=== PATIENT | female | born 1985 | race Asian ===

== ENCOUNTER 2024-06-19 09:16 | Emergency (ER) | payer OTHER, SELFPAY ==
[2024-06-19 09:19] VITALS: BP 131/85
[2024-06-19 10:27] VITALS: BMI 23.7
--- NOTE | 2024-06-19 10:42 | ED.GENMED ---
History of Present Illness
General
Chief Complaint: Chest Pain
Source: patient
Exam Limitations: none
Time Seen by Provider: 06/19/24 10:41
Nursing documentation reviewed up to this point in time: agreed with
History of Present Illness
History of Present Illness:
38 yo female with no known past medical history presents stating last night around 10:30 while watching TV she developed mid to left upper chest pains. The pain is worse with deep breathing and sitting forward and with certain movements. She
denies shortness of breath, denies any recent upper respiratory infections, no history of blood clots, does not use contraceptives. No recollection of overuse or injury
Past History
Past History
ED Past Medical History: None
ED Past Surgical History: None
Social History
Tobacco: Non-smoker
Alcohol: Occasional
Drug: None
Personal:
Living: with family
Employment: Employed
Review of Systems
Review of Systems
Allergies reviewed?: Yes
All Other Systems: ROS reviewed and negative except as documented in HPI and ROS
Constitutional: Denies fever or fatigue
Respiratory: Denies trouble breathing
Cardiac: Reports chest pain; Denies diaphoresis, palpitations or syncope
ABD/GI: Denies abdominal pain or nausea
: Reports no symptoms
Musculoskeletal: Reports no symptoms
Skin: Reports no symptoms
Neurological: Reports no symptoms
Phy Exam
Physical Exam
Physical Exam:
GENERAL: No acute distress. A&Ox3.
CONSTITUTIONAL: Afebrile.
EYES: clear, conjunctivae normal
ENMT: moist mucus membranes, Pharynx nl
RESPIRATORY: Regular respirations, nonlabored, lungs clear.
CARDIOVASCULAR: Regular rate and rhythm, no murmurs, no rubs.
GI: Soft, nontender, normal BS
MUSCULOSKELETAL: Unable to reproduce pain with palpation. Moves with ease. Well perfused.
SKIN: Warm, dry, pink
PSYCH: Normal mood and affect. Well kept, interactive and appropriate
NEUROLOGIC: Awake, alert and oriented. No focal neurological deficits
Scores
Heart Score for Chest Pain Patients
STEMI patient?: Not applicable
Course
Orders/Labs/Results
Orders:
Orders
06/19/24 09:16
ECG [Electrocardiogram (*1)] Urgent
Reason for Study: Chest Pain
EKG- Treatment ONCE
06/19/24 10:54
Ketorolac [Toradol] 15 mg IV NOW STA
06/19/24 11:00
Complete Blood Count/With Diff Urgent
Comprehensive Metabolic Panel Urgent
D-Dimer Urgent
Troponin I Urgent
06/19/24 11:47
CR Chest - 2 Views Urgent
Comment:
Reason For Exam: mid to left chest pain
Abnormal Lab Results
06/19/24
11:00
RBC 4.09 L 10^6/uL
(4.20-5.40)
Hct 36.4 L %
(37.0-47.0)
06/19/24 11:00
06/19/24 11:00
Vital Signs
Initial and Last Documented VS:
Initial Vital Signs
Temp Pulse Resp BP Pulse Ox
98.1 F 68 18 131/85 100
06/19/24 09:19 06/19/24 09:19 06/19/24 09:19 06/19/24 09:19 06/19/24 09:19
Last Documented Vital Signs
Temp Pulse Resp BP Pulse Ox
98.1 F 60 20 98/73 100
06/19/24 09:19 06/19/24 11:55 06/19/24 11:55 06/19/24 12:58 06/19/24 11:55
MDM/Problems Addressed
Differential Diagnosis Includes:
costochondritis, musculoskeletal, pleuritis, PE
MDM/Problems Addressed:
38 yo female with no known past medical history presents stating last night around 10:30 while watching TV she developed mid to left upper chest pains. The pain is worse with deep breathing and sitting forward and with certain movements. She
denies shortness of breath. Feels well otherwise
No risk factors for PE
11:45 AM:
CBC normal
CMP normal
Troponin normal
D-dimer normal
CXR: Normal
Pt stable for discharge
*EKG
EKG Intrepretation Date: 06/19/24
Interpretation: normal
Heart Rate: 59
Rate: bradycardiac
Rhythm: sinus arrhythmia
[place]: normal axis
Interval: normal interval
QRS Pattern: normal QRS
Ischemia: no ischemia
*Critical Care Note
Total Time (30-74mins, 75-104mins- exclusive of procedures): Not Applicable
ED Attending Note
-
Portions of this chart may have been created with voice recognition software.� Occasional wrong word or��sound alike� substitutions may have occurred due to the inherent limitations of voice recognition software.
Discharge Plan
Departure
Patient Disposition: Home (Routine Discharge)
Date of Disposition: 06/19/24
Time of Disposition: 12:04
Patient with high blood pressure during this ER visit?: No
Condition: Good
Discharge Problem:
Atypical chest pain
Instructions: Chest Pain That Is Not Caused by the Heart (DC), Costochondritis (DC)
Prescriptions:
No Action
No Current Medications
0
Referrals:
Tarun Vergara MD [Family Provider] - As needed
Activity Restrictions/Additional Instructions:
As we discussed, your workup here today shows nothing worrisome.
Ibuprofen 600 mg, with food, every 6 hours as needed for pain.
Interventions
Interventions:
*Risk Screen - Suicide Last Done: 06/19/24 09:19
*General Assessment Last Done: 06/19/24 09:19
*Neglect/Abuse Screening Last Done: 06/19/24 09:19
ED- Fall Risk Assessment Last Done: 06/19/24 10:30
*ED COVID-19 Vaccine History Last Done: 06/19/24 10:29
*Nursing Disposition Last Done: 06/19/24 13:03
ED- Cardiac Assessment Last Done: 06/19/24 10:28
Discharge Date and Time
Discharge Date/Time: 06/19/24 13:03
Print Language: SAMMARINESE
[2024-06-19 11:00] VITALS: BP 108/77
[2024-06-19] MEDS: TORADOL 15 MG IV (11:08)
[2024-06-19 11:10] LABS: % Basophils 0.6 % (0-2); % Eosinophils 1.1 % (0-6); % Immature Granulocytes 0.2 % (0-0.5); % Lymphocytes 43.6 % (20.5-51.1); % Monocytes 6.1 % (1.7-9.3); % Neutrophils 48.4 % (42.2-75.2); Absolute Eosinophils 0.1 10^3/uL (0-0.7); Absolute Lymphocytes 2.4 10^3/uL (1.2-3.4); Absolute Monocytes 0.3 10^3/uL (0.1-0.6); Absolute Neutrophils 2.6 10^3/uL (1.4-6.5); Hematocrit 36.4 % (37.0-47.0); Hemoglobin 12.4 g/dL (12.0-16.0); Mean Corp Hgb Conc. 34.1 g/dL (33.0-37.0); Mean Corpuscular Hgb 30.3 pg (27.0-31.0); Nucleated Red Blood Cells % 0 %; Platelet Count 307 10^3/uL (130-400); Red Blood Cell Count 4.09 10^6/uL (4.20-5.40); Red Cell Dist. Width 12.8 % (11.5-14.5); White Blood Cell Count 5.4 10^3/uL (4.8-10.8)
[2024-06-19 11:27] LABS: ALT (SGPT) 12 U/L (0-35); AST (SGOT) 27 U/L (14-36); Albumin 4.4 g/dl (3.5-5.0); Alkaline Phosphatase 68 U/L (38-126); Blood Urea Nitrogen 14 mg/dl (7-17); Calcium 9.7 mg/dl (8.4-10.2); Carbon Dioxide 27 mmol/L (22-30); Chloride 105 mmol/L (98-107); Estimated Creatinine Clearance 86 ml/min; Glucose 91 mg/dl (70-99); Potassium 4.6 mmol/L (3.5-5.1); Sodium 141 mmol/L (135-145); Total Bilirubin 0.5 mg/dl (0.2-1.3); Total Protein 7.1 g/dl (6.3-8.2); eGFR > 60.00
[2024-06-19 11:32] LABS: D-Dimer < 0.27 ug/mlFEU (0.00-0.50)
[2024-06-19 11:38] LABS: Troponin I < 0.012 ng/ml
[2024-06-19 12:58] VITALS: BP 98/73
== END 2024-06-19 13:03 | disposition home or self-care (01) ==
LOC: EMR 09:16
PROVIDERS: Registered Nurse; EMERGENCY PHYSICIAN Student in an Organized Health Care Education/Training Program; FAMILY PHYSICIAN Family Medicine
DX: R07.89 Other chest pain (principal)
CPT/HCPCS: 99283; 96374; 71046; 80053; 84484; 85025; 85379; 93005